=== PATIENT | male | born 1990 | race Caucasian/White ===

== ENCOUNTER 2020-11-27 12:26 | Emergency (ER) | payer SELFPAY ==
[~2020-11-27] VITALS: Ht 175.3 cm; Wt 53.9 kg
[2020-11-27 12:33] VITALS: TEMP 98.1
[2020-11-27] MEDS ORDERED: AMOXICILLIN875 MG PO (12:59)
[2020-11-27 13:15] VITALS: BP 116/71; PULSE 84
== END 2020-11-27 13:15 | disposition home or self-care (01) ==
LOC: COL.ER 12:26
DX: J01.90 Acute sinusitis, unspecified (principal); F17.210 Nicotine dependence, cigarettes, uncomplicated

== ENCOUNTER 2023-06-08 15:11 | Emergency (ER) | payer SELFPAY ==
[~2023-06-08] VITALS: Ht 177.8 cm; Wt 54.5 kg
[~2023-06-08 15:11] MED LIST: AMOXICILLIN875 MG PO; CRUTCHES MC
[2023-06-08 18:46] VITALS: BP 110/64; PULSE 68; TEMP 97.2
== END 2023-06-08 18:39 | disposition home or self-care (01) ==
LOC: COL.ER 15:11
DX: M25.562 Pain in left knee (principal); Z28.310 Unvaccinated for COVID-19